=== PATIENT | female | born 1970 | race African-American/Black ===

== ENCOUNTER → 2023-12-21 14:15 | Outpatient (REF) | payer OTHER, SELFPAY | LOC: WDC 14:15 | PROVIDERS: ATTENDING PHYSICIAN Obstetrics & Gynecology; FAMILY PHYSICIAN Family Medicine | DX: Z12.31 Encounter for screening mammogram for malignant neoplasm of breast (principal) | CPT/HCPCS: 77063; 77067 ==

== ENCOUNTER → 2023-12-23 13:54 | Outpatient (REF) | payer OTHER, SELFPAY | LOC: HWRAD 13:54 | PROVIDERS: ATTENDING PHYSICIAN Obstetrics & Gynecology; FAMILY PHYSICIAN Family Medicine | DX: D25.1 Intramural leiomyoma of uterus (principal); Z98.890 Other specified postprocedural states | CPT/HCPCS: 76830; 76856 ==

== ENCOUNTER → 2024-02-10 13:39 | Outpatient (REF) | payer OTHER, SELFPAY | LOC: PAVMRI 13:39 | PROVIDERS: ATTENDING PHYSICIAN Obstetrics & Gynecology; FAMILY PHYSICIAN Family Medicine | DX: R93.89 Abnormal findings on diagnostic imaging of other specified body structures (principal); N94.89 Other specified conditions associated with female genital organs and menstrual cycle; N83.8 Other noninflammatory disorders of ovary, fallopian tube and broad ligament; N85.2 Hypertrophy of uterus; D25.1 Intramural leiomyoma of uterus | CPT/HCPCS: 72197; A9575 ==